=== PATIENT | male | born 1960 | race Caucasian/White ===

== ENCOUNTER 2025-07-24 15:03 | Outpatient (OUT) | payer MEDICARE, SELFPAY ==
--- OUTSIDE RECORDS SUMMARY | 2025-07-24 15:06 | XMS_ITS | Clinical Summary ---
Author Organization [facility] Address [address] [place] [id number] Care Team Providers Care Executive Staff Assistant Name Role Phone Unavailable Primary Care Provider Unavailabl e Allergies No known active allergies Medications No known medications Social History Tobacco UseTypesPacks/DayYears UsedDateSmoking Tobacco: FormerSmokeless Tobacco: NeverPHQ-2AnswerDate RecordedPHQ-2 Awqgd19808/24/2018Sex and Gender Information ValueDate RecordedSex Assigned at BirthNot on fileLegal PsfSibk2902/23/2019 1:35 PM EDTGender IdentityNot on fileSexual OrientationNot on file Last Filed Vital Signs Vital SignReadingTime TakenCommentsBlood Dljqfkup562/70002/23/2019 3:13 PM EDT Ggdft733902/23/2019 3:13 PM LMTMdnpbadgfeu87.7 ??C (98 ??F)02/23/2019 3:13 PM EDT Respiratory Ldzy595702/23/2019 3:13 PM EDTOxygen Yiijzifdyk41%02/23/2019 3:13 PM EDTInhaled Oxygen Concentration--Flzoja84 kg (150 lb)02/23/2019 1:50 PM EDT Height--Body Mass Index-- Plan of Treatment Health MaintenanceDue DateLast DoneCommentsAnxiety Zcaoqqqky95/23/1980Depression Edqjzfgwr92/23/1980HIV Xtebxtzig26/23/1980Hepatitis C Miyfpdoxp66/23/1980 DTaP,Tdap,Td Vaccine (1 - Tdap)1981Lipid Tzmoykjeb99/23/1997CT Skxkwevtpecz25/23/2007Cologuard (FIT-DNA)02/18/20079064Qqalodongmn09/23/2007 Colorectal Cancer Ivbvjrsvw27/23/2007Diabetes Gghvvaehx82/23/2007Fecal Occult Blood2007Prostate Cancer Screening Qughrhhgpc44/23/2007Sigmoidoscopy 2007Pneumococcal Vaccine: 50+ (1 of 1 - PCV)02/19/2012Shingrix Vaccine (1 of 2)02/19/2012Covid-19 Vaccine (1 - 2024- season)2025Influenza Vaccine (#1)2025RSV Vaccine (1 - 1-dose 75+ series)2037 Insurance
--- OUTSIDE RECORDS SUMMARY | 2025-07-24 15:06 | XMS_ITS | Clinical Summary ---
Author Organization [facility] Address [address] [place] [address] Care Team Providers Care Refrigeration Supervisor Name Role Phone Unavailable Primary Care Provider Unavailabl e Social History Tobacco UseTypesPacks/DayYears UsedDateSmoking Tobacco: Never AssessedSex and Gender InformationValueDate RecordedSex Assigned at BirthNot on fileLegal Sex Male10/11/2022 10:14 PM EDTGender IdentityNot on fileSexual OrientationNot on file Last Filed Vital Signs Vital SignReadingTime TakenCommentsBlood Fhkgrndu252/72009/26/2021 12:00 PM EST Pulse--Temperature--Respiratory Rate--Oxygen Saturation--Inhaled Oxygen Concentration--Exptge96.6 kg (191 lb)09/26/2021 12:00 PM BCOXntzpw010.3 cm (5' 9 )09/26/2021 12:00 PM ESTBody Mass Index28.21009/26/2021 12:00 PM EST Plan of Treatment Not on file
--- OUTSIDE RECORDS SUMMARY | 2025-07-24 15:06 | XMS_ITS | Patient Health Record ---
Author Organization [facility] Address [address] [place] [address] Care Team Providers Care Studio Hand Name Role Phone Dr. Lamont Garcia Primary Care Provider Jillian Kramer Unavailable [phone] Reason For Referral No Information Encounters Encounter Location Date Provider Diagnosis [facility] [address] [place] [address] 07/16/2025 Lamont Garcia [facility] [place] [address]/05/2025 Jillian Victorer for dental examination and cleaning with abnormal findings Z01.21 ; Other dental procedure status Z98.818 ; Dental caries on pit and fissure surface penetrating into dentin K02.52 and Partial loss of teeth, unspecified cause, class I K08.401[facility] [address] [place] [address]/02/2025Jillian KramerDental caries on pit and fissure surface penetrating into dentin K02.52 Assessments Encounter Date Diagnosis (ICD Code) Assessment Notes Treatment Notes Treatment Clinical Notes Section Notes 03/09/2025 Encounter for dental examination and cleaning with abnormal findings (ICD-10 - Z01.21) 07/06/2025Dental caries on pit and fissure surface penetrating into dentin (ICD- 10 - K02.52)03/09/2025Other dental procedure status (ICD-10 - Z98.818)03/09/2025 Dental caries on pit and fissure surface penetrating into dentin (ICD-10 - K02.52)03/09/2025Partial loss of teeth, unspecified cause, class I (ICD-10 - K08.401) Plan Of Treatment Next Appt Details Provider Name:Susie Davis, 08/10/2025 03:30:00 PM, [address], [place], [address], Provider Name:Jillian Kramer, 11/30/2025 01:00:00 PM, [address], [place], [address], Insurance Providers Payer Name Payer Address Payer Phone Subscriber Number Group Number Insured Name Patient Relationship to Insured Coverage Start Date Coverage End Date Dental Wrap [facility] [address] [place] [phone] [id number] [employer] Self - patient is the insured 3 3 [employer] [place] [employer] [address] [place] [phone] [id number] [employer] Self - patient is the insured 5
--- NOTE | 2025-07-24 15:07 | CT_ITS ---
[address] [address] Patient Name: DAVEY DIAL MRN: [id number] date: 1960 Sex: M Assigned Patient Location: CT Current Patient Location: CT Accession/Order Number: [id number] Exam Date: 07/24/2025 15:08 Report Date: 07/24/2025 21:06 At the request of: CINDY DAVIDSON DO, MS Procedure: CT lung screening low-dose CT Chest lung screening without contrast TECHNIQUE: Axial imaging with 2-D reconstruction. The CT exam was performed using one or more the following dose reduction techniques: Automated exposure control, adjustment of the MA and/or Kv according to patient size, or use of the iterative reconstruction technique. History: 13 pack year smoker COMPARISON: None THYROID: Unremarkable TRACHEA AND BRONCHI: Patent ESOPHAGUS: Unremarkable. HEART: Within normal limits PERICARDIAL EFFUSION: None CORONARY ARTERY CALCIFICATION: None MEDIASTINUM: No adenopathy. No pneumoperitoneum. No mediastinal hematoma. PULMONARY TIMOTHY: No hilar mass or adenopathy is seen. THORACIC AORTA Unremarkable LUNG NODULE None LUNGS: Lungs are clear PLEURAL EFFUSION: None PNEUMOTHORAX: No pneumothorax seen. CHEST WALL: No abnormality AXILLA:Unremarkable BONY STRUCTURES Intact UPPER ABDOMEN: Images of the upper abdomen are noncontributory. CT/CT lung screening low-dose IMPRESSION: No visible lung nodule. FINAL ASSESSMENT: Negative. Lung-RADS Version 1.0 Assessment Category: 1 REMARKS: Continued annual screening with LDCT in 12 months is recommended. Impression dictated by: Clarence Brown M.D. 07/24/2025 9:06 PM Dictation Location[facility] Electronically authenticated by: [id number] Y Date: 07/24/2025 21:06
== END 2025-07-24 15:04 | disposition home or self-care (01) ==
LOC: CT 15:03
PROVIDERS: PCP Student in an Organized Health Care Education/Training Program; Visit Provider Student in an Organized Health Care Education/Training Program
DX: Z12.2 Encounter for screening for malignant neoplasm of respiratory organs (principal); Z87.891 Personal history of nicotine dependence
CPT/HCPCS: 71271